=== PATIENT | female | born 1965 | race Caucasian/White ===

== ENCOUNTER 2024-07-13 02:10 | Inpatient (IN) | payer OTHER ==
[~2024-07-13] VITALS: Ht 165.1 cm; Wt 67.9 kg
--- NOTE | 2024-07-13 02:22 | ED.PDOC ---
HPI Comments 58 year old female came to ER via EMS due to chest pains. Patient has been having intermittent episodes of chest pains the past 3 days, associated with shortness of breath. Patient was seen at [facility], showing elevated troponin levels and left sided pneumonia on xrays. Patient was transferred here for continuing management. Blood pressure upon arrival was 165/121 mmHg Chief Complaint: Chest Pain Time Seen by MD: 02:54 Reviewed Notes: Nurses Notes Information Source: Patient, Emergency Med Personnel Mode of Arrival: EMS Severity: Moderate Timing: Days Duration: Intermittent Prehospital treatment: 12 Lead EKG, Oxygen Location: Substernal Radiation: No Radiation Quality: Pressure, Aching Onset: With Light Exertion Cardiac Risk Factors: HTN PE Risk Factors: None History of: None Modifying Factors: Nothing Associated Signs and Symptoms: SOB Past Medical History PAST MEDICAL HISTORY: HTN Surgical History: Denies all surgeries 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 Family History Family History: Reviewed,noncontributory to illness Social History Smoker: Non-Smoker Alcohol: Denies ETOH Use Drugs: Denies Drug Use Lives In: Home Constitutional: denies: chills, diaphoresis, fatigue, fever, malaise, sweats, weakness, others EENTM: denies: blurred vision, double vision, ear bleeding, ear discharge, ear drainage, ear pain, ear ringing, eye pain, eye redness, hearing loss, mouth pain, mouth swelling, nasal discharge, nose bleeding, nose congestion, nose pain, photophobia, tearing, throat pain, throat swelling, voice changes, others Respiratory: denies: cough, hemoptysis, orthopnea, SOB at rest, shortness of breath, SOB with excertion, stridor, wheezing, others Cardiovascular: reports: chest pain; denies: dizzy spells, diaphoresis, Dyspnea on exertion, edema, irregular heart beat, left arm pain, lightheadedness, palpitations, PND, syncope, others Gastrointestinal: denies: abdomen distended, abdominal pain, blood streaked bowels, constipated, diarrhea, dysphagia, difficulty swallowing, hematemesis, melena, nausea, poor appetite, poor fluid intake, rectal bleeding, rectal pain, vomiting, others Genitourinary: denies: abnormal vagina bleeding, burning, dyspareunia, dysuria, flank pain, frequency, hematuria, incontinence, pain, , vagina di scharge, urgency, others Neurological: denies: dizziness, fainting, headache, left sided numbness, left sided weakness, numbness, paresthesia, pre-existing deficit, right sided numbness, right sided weakness, seizure, speech problems, tingling, tremors, weakness, others Musculoskeletal: denies: back pain, gout, joint pain, joint swelling, muscle pain, muscle stiffness, neck pain, others Integumetry: denies: bruises, change in color, change in hair/nails, dryness, laceration, lesions, lumps, rash, wounds, others Allergic/Immunocompromised: denies: Difficulty Healing, Frequent Infections, Hives, Itching, others Hematologic/Lymphatic: denies: anemia, blood clots, easy bleeding, easy bruising, swollen glands, others Endocrine: denies: excessive hunger, excessive sweating, excessive thirst, excessive urination, flushing, intolerance to cold, intolerance to heat, unexplained weight gain, unexplained weight loss, others Psychiatric: denies: anxiety, bipolar disorder, depression, hopeless, panic disorder, schizophrenia, sleepless, suicidal, others Physical Exam General Appearance: No Apparent Distress, Normal HEENT: Normal ENT Inspection, Pharynx Normal, TMs Normal Neck: Full Range of Motion, Non-Tender, Normal, Normal Inspection Respiratory: Chest Non-Tender, Lungs Clear, No Accessory Muscle Use, No Respiratory Distress, Normal Breath Sounds Cardiovascular: No Edema, No JVD, No Murmur, No Gallop, Normal Peripheral Pulses, Regular Rate/Rhythm Breast Exam: Deferred Gastrointestinal: No Organomegaly, Non Tender, No Pulsatile Mass, Normal Bowel Sounds, Soft Genitalia: Deferred Pelvic: Deferred Rectal: Deferred Extremities: No calf tenderness, Normal capillary refill, Normal inspection, Normal range of motion, Non-tender, No pedal edema Musculoskeletal : Apperance: Normal Neurologic: Alert, bariatric program coordinator II-XII nml as Tested, No Motor Deficits, Normal Affect, Normal Mood, No Sensory Deficits Cerebellar Function: Normal Reflexes: Normal Skin: Dry, Normal Color, Warm Lymphatic: No Adenopathy EKG EKG : Pulse Rate (adult): 96 Cardiac Rhythm: NSR Block: LBBB Was a procedure done? Was a procedure done?: No CP Differential Dx Differential Diagnosis: MAT, DE, PAC's Differential Diagnosis: HTN Essential, HTN Accelerated, Medical NonCompliance Differential Diagnosis: Gastritis, Myocardial Infarction, Pericarditis, Pneumonia X-Ray, Labs, Meds, VS Vital Signs Date Time Temp Pulse Resp B/P (MAP) Pulse Ox O2 Delivery O2 Flow Rate FiO2 07/13/24 02:54 96 07/13/24 02:15 94 07/13/24 02:10 98.2 97 18 165/121 (136) 97 Lab Test 07/13/24 03:23 07/13/24 02:25 Range/Units Troponin I High Sensitivity Pending 314 *H </=34 ng/L White Blood Count 8.3 4.4-10.8 10^3/uL Red Blood Count 5.11 4.0-5.20 10^6/uL Hemoglobin 15.1 12.2-16.2 g/dL Hematocrit 45.8 36.0-46.0 % Mean Corpuscular Volume 89.6 80.0-100.0 fL Mean Corpuscular Hemoglobin 29.5 28.0-32.0 pg Mean Corpuscular Hemoglobin Concent 33.0 32.0-36.0 g/dL Red Cell Distribution Width 14.1 11.8-14.3 % Platelet Count 231 140-450 10^3/uL Mean Platelet Volume 8.8 6.9-10.8 fL Neutrophils (%) (Auto) 74.7 37.0-80.0 % Lymphocytes (%) (Auto) 17.8 10.0-50.0 % Monocytes (%) (Auto) 6.0 0.0-12.0 % Eosinophils (%) (Auto) 0.5 0.0-7.0 % Basophils (%) (Auto) 1.0 0.0-2.0 % Neutrophils # (Auto) 6.2 1.6-8.6 10 ^3/uL Lymphocytes # (Auto) 1.5 0.4-5.4 10 ^3/uL Monocytes # (Auto) 0.5 0-1.3 10 ^3/uL Eosinophils # (Auto) 0 0-0.8 10 ^3/uL Basophils # (Auto) 0.1 0-0.2 10 ^3/uL Nucleated Red Blood Cells 0.1 % Sodium Level 140 136-145 mmol/L Potassium Level 4.0 3.5-5.1 mmol/L Chloride Level 105 98-107 mmol/L Carbon Dioxide Level 27 20-31 mmol/L Anion Gap 8 5-15 Blood Urea Nitrogen 24 H 9-23 mg/dL Creatinine 1.02 0.550-1.02 mg/dL Glomerular Filtration Rate Calc 65 >90 mL/min BUN/Creatinine Ratio 23.5 H 10.0-20.0 Serum Glucose 128 H 74-106 mg/dL Calcium Level 9.6 8.7-10.4 mg/dL Time of 1ST Reevaluation: 02:22 Reevaluation 1ST: Unchanged Patient Education/Counseling: Diagnosis, Treatment Family Education/Counseling: Diagnosis, Treatment Departure 1 Departure Time of Disposition: 03:32 (Patient presented with chest pain that was concerning for possible STEMI, ACS, PE, Pneumonia, Muscle Strain, COPD, Dissection. Data: 1. I ordered and reviewed the result of at least 3 labs including a CBC, BMP, and Troponin. 2. I independently interpreted the following tests: EKG which shows sinus arrhythmia and Chest X-ray which shows concern for possible pneumonia.. Patient received antibiotics at other hospitalRisk:This patient has a high risk of morbidity due to further diagnostic testing or treatment and may suffer from an acute cardiac or respiratory disorder. Workup reveals concern for ACS and patient should be admitted for further workup and possible expert consultation. ) Impression: Primary Impression: Acute chest pain Additional Impression: Elevated troponin Disposition: ADMITTED INPATIENT Admit to: Med Surg Condition: Serious Critical Care Note Critical Care Time?: Yes (35 min-critical care time only) Critical care comment: chest pains Authorized and Performed by: Lupe Saini MD Total critical care time: Approximately 72 minutes Due to a high probability of clinically significant, life threatening deterioration, the patient required my highest level of preparedness to intervene emergently and I personally spent this critical care time directly and personally managing the patient. This critical care time included obtaining a history; examining the patient; pulse oximetry; ordering and review of studies; arranging urgent treatment with development of a management plan; evaluation of patient's response to treatment; frequent reassessment; and, discussions with other providers. This critical care time was performed to assess and manage the high probability of imminent, life-threatening deterioration that could result in multi-organ failure. It was exclusive of separately billable procedures and treating other patients and teaching time. Please see my other sections and the rest of the note for further information on patient assessment and treatment. Stability Stability form required: No Heart Score Heart Score: Heart Score Response (Comments) Value History Moderate Suspicious 1 EKG Repolarization Disturb 1 Age 45-64 1 Risk Factors 1 or 2 risk factors 1 Troponin Normal limit 0 Total 4 I personally scribed for LUPE SAINI MD ([facility]) on 07/13/24 at 02:22. Electronically submitted by Zhao Buck ([facility]). I personally scribed for LUPE SAINI MD ([facility]) on 07/13/24 at 02:54. Electronically submitted by Zhao Buck ([facility]). LUPE SAINI MD Jul 13, 2024 02:22
[2024-07-13 02:50] LABS: Chloride 105 mmol/L (98-107); Sodium 140 mmol/L (136-145)
[2024-07-13 02:51] LABS: Anion Gap 8 (5-15); Carbon Dioxide 27 mmol/L (20-31)
[2024-07-13 02:52] LABS: Basophils # (auto) 0.1 10 ^3/uL (0-0.2); Calcium 9.6 mg/dL (8.7-10.4); Eosinophils # (auto) 0 10 ^3/uL (0-0.8); Eosinophils % (auto) 0.5 % (0.0-7.0); Hematocrit 45.8 % (36.0-46.0); Hemoglobin 15.1 g/dL (12.2-16.2); Lymphocytes # (auto) 1.5 10 ^3/uL (0.4-5.4); Lymphocytes % (auto) 17.8 % (10.0-50.0); Mean Corpuscular Hemoglobin 29.5 pg (28.0-32.0); Mean Corpuscular Volume 89.6 fL (80.0-100.0); Monocytes # (auto) 0.5 10 ^3/uL (0-1.3); Neutrophils # (auto) 6.2 10 ^3/uL (1.6-8.6); Neutrophils % (auto) 74.7 % (37.0-80.0); Nucleated Red Blood Cells % 0.1 %; Platelet Count (auto) 231 10^3/uL (140-450); Red Blood Cells 5.11 10^6/uL (4.0-5.20); Red Cell Distribution Width 14.1 % (11.8-14.3); White Blood Cell 8.3 10^3/uL (4.4-10.8)
[2024-07-13 02:56] LABS: BUN/Creatinine Ratio 23.5 (10.0-20.0)
[2024-07-13 03:10] LABS: Blood Urea Nitrogen 24 mg/dL (9-23); Glucose 128 mg/dL (74-106)
[2024-07-13] MEDS ORDERED: cloNIDine HCL 0.1 MG TAB PO PRN (03:45)
[2024-07-13] MEDS ORDERED: DOCUSATE SOD 100 MG CAP PO PRN (03:45)
[2024-07-13 04:00] VITALS: PULSE 92; RESP 18; O2SAT 96
--- NOTE | 2024-07-13 04:09 | DVH ---
EXAM: XY CHEST PORTABLE HISTORY: cp COMPARISON: Chest CT dated 07/12/2024 was not made available on the PAC system for viewing. TECHNIQUE: Portable AP view of the chest was performed. FINDINGS: There are hazy opacities in the lung bases. The left hemidiaphragm is partially obscured. No pneumot horax. The heart is enlarged. IMPRESSION: 1. Bilateral lung base opacities may be due to pneumonia and/or pleural effusions. 2. Cardiomegaly.
[2024-07-13] MEDS ORDERED: NITROGLYCERIN 0.4 MG SL TAB SL PRN (04:30)
--- NOTE | 2024-07-13 04:30 | DVHHP2 ---
History of Present Illness Reason for Visit: Acute chest pain History of Present Illness The patient is a 58-year-old female with past medical history of hypertension who presented to [facility] ED with complaint of chest pain. Patient reports he has been experiencing intermittent episode of chest pain for the past 3 days, associated shortness of breaths, getting worse today that prompted this visit. Patient was seen and evaluated in the ED, laboratory data shows WBC 8.3, platelets 231, sodium 140, potassium 4.0, BUN 24, creatinine 1.02, GFR 65, glucose 128, troponin 314, blood pressure 165/121, heart rate 94, temperature 98.2 F, O2 saturation 97% on room air. Chest x-ray revealing bilateral lung base opacity may be due to pneumonia and/or pleural effusions, cardiomegaly present. Patient was given aspirin 325 mg p.o. x1, please see medication orders section in the computer. On my assessment, patient denied chest pain at this moment, no headache, no dizziness, no diaphoresis, no nausea, no vomiting, no fever, no chills. Patient was admitted for further evaluation and medical management. Past Medical History HTN Past Surgical History Denies all surgeries Family History Reviewed, noncontributory to the management of this case. Past Social History The patient lives at home, denies smoking, alcohol or illicit drugs abuse. Review of Systems Constitutional: No: Fever, Chills, Sweats, Weakness, Malaise, Other Eyes: No: Pain, Vision change, Conjunctivae inflammation, Eyelid inflammation, Other, Redness ENT: No: Ear pain, Ear discharge, Nose pain, Nose discharge, Nose congestion, Mouth pain, Mouth swelling, Throat pain, Throat swelling, Other Respiratory: No: Cough, Dry, Shortness of breath, SOB with excertion, Wheezing, Hemoptysis, Pleuritic Pain, Sputum, Wheezing, Other Cardiovascular: Chest Pain; No: Palpitations, Orthopnea, Paroxysmal Noc. Dyspnea, Edema, Lt Headedness, Other Gastrointestinal: No: Nausea, Vomiting, Abdominal Pain, Diarrhea, Constipation, Melena, Hematochezia, Other Genitourinary: No Dysuria, No Frequency, No Incontinence, No Hematuria, No Retention, No Other Musculoskeletal: No: other, neck pain, shoulder pain, arm pain, back pain, hand pain, leg pain, foot pain Skin: No: Rash, Lesions, Jaundice, Bruising, Other Neurological: No: Weakness, Numbness, Incoordination, Change in speech, Confusion, Seizures, Other Medications Current Medications Medications Dose Ordered Sig/Marily Route Start Time Stop Time Status Last Admin Dose Admin Aspirin 81 mg DAILY PO 07/13/24 10:00 UNV Clonidine HCl 0.1 mg Q4HP PRN PO 07/13/24 03:45 UNV Metoprolol Tartrate 25 mg BID PO 07/13/24 10:00 UNV Sodium Chloride 10 ml Q8HR IV 07/13/24 06:00 UNV Acetaminophen/ Hydrocodone Bitart 1 tab Q4HP PRN PO 07/13/24 03:45 UNV Ondansetron HCl 4 mg Q4HP PRN IV 07/13/24 03:45 UNV Docusate Sodium 100 mg BIDPRN PRN PO 07/13/24 03:45 UNV Acetaminophen 650 mg Q6HP PRN PO 07/13/24 03:45 UNV Exam Vital Signs Vital Signs Date Time Temp Pulse Resp B/P (MAP) Pulse Ox O2 Delivery O2 Flow Rate FiO2 07/13/24 02:54 96 07/13/24 02:10 98.2 18 165/121 (136) 97 General Appearance: Alert, Oriented X3, Cooperative, No acute distress HEENT: Atraumatic, PERRLA, Mucous membr. moist/pink Respiratory: Clear to auscultation, Normal air movement Cardiovascular: Regular rate, Normal S1, Normal S2, No murmurs Abdominal: Normal bowel sounds, Soft, No tenderness, No hepatospenomegaly, No masses Extremities: No clubbing, No cyanosis, No edema, Normal pulses, No tenderness/swelling Skin: No rashes, No breakdown, No significant lesion Neuro: Normal gait, Normal speech, Strength at 5/5 X4 ext, Normal tone, Sensation intact, Cranial nerves 3-12 NL, Reflexes 2+ Psych/Mental Status: Mental status NL, Mood NL Labs/Xrays Labs Test 07/13/24 03:23 07/13/24 02:25 Range/Units White Blood Count 8.3 4.4-10.8 10^3/uL Red Blood Count 5.11 4.0-5.20 10^6/uL Hemoglobin 15.1 12.2-16.2 g/dL Hematocrit 45.8 36.0-46.0 % Mean Corpuscular Volume 89.6 80.0-100.0 fL Mean Corpuscular Hemoglobin 29.5 28.0-32.0 pg Mean Corpuscular Hemoglobin Concent 33.0 32.0-36.0 g/dL Red Cell Distribution Width 14.1 11.8-14.3 % Platelet Count 231 140-450 10^3/uL Mean Platelet Volume 8.8 6.9-10.8 fL Neutrophils (%) (Auto) 74.7 37.0-80.0 % Lymphocytes (%) (Auto) 17.8 10.0-50.0 % Monocytes (%) (Auto) 6.0 0.0-12.0 % Eosinophils (%) (Auto) 0.5 0.0-7.0 % Basophils (%) (Auto) 1.0 0.0-2.0 % Neutrophils # (Auto) 6.2 1.6-8.6 10 ^3/uL Lymphocytes # (Auto) 1.5 0.4-5.4 10 ^3/uL Monocytes # (Auto) 0.5 0-1.3 10 ^3/uL Eosinophils # (Auto) 0 0-0.8 10 ^3/uL Basophils # (Auto) 0.1 0-0.2 10 ^3/uL Nucleated Red Blood Cells 0.1 % Sodium Level 140 136-145 mmol/L Potassium Level 4.0 3.5-5.1 mmol/L Chloride Level 105 98-107 mmol/L Carbon Dioxide Level 27 20-31 mmol/L Anion Gap 8 5-15 Blood Urea Nitrogen 24 H 9-23 mg/dL Creatinine 1.02 0.550-1.02 mg/dL Glomerular Filtration Rate Calc 65 >90 mL/min BUN/Creatinine Ratio 23.5 H 10.0-20.0 Serum Glucose 128 H 74-106 mg/dL Calcium Level 9.6 8.7-10.4 mg/dL PATIENT: GLYNN MELTON ACCT: [id number] UNIT: [id number] : 1965 LOC: ER ROOM / BED: / AGE / SEX: 58 / F ADM STATUS: REG ER SERVICE 0219 ORDERING PHYSICIAN: LUPE AKERS MD PROCEDURE(s): CXRP - CHEST PORTABLE REASON: cp ORDER NUMBER(s): [id number], ACCESSION NUMBER(s): [id number] EXAM: XY CHEST PORTABLE HISTORY: cp COMPARISON: Chest CT dated 07/12/2024 was not made available on the PAC system for viewing. TECHNIQUE: Portable AP view of the chest was performed. FINDINGS: There are hazy opacities in the lung bases. The left hemidiaphragm is partially obscured. No pneumothorax. The heart is enlarged. IMPRESSION: 1. Bilateral lung base opacities may be due to pneumonia and/or pleural effusions. 2. Cardiomegaly. Assessment/Plan Assessment/Plan Acute chest pain Elevated troponin Hypertensive urgency Pneumonia, unspecified organism Plan 1. Admit to telemetry unit 2. Breathing treatment 3. Pain control management 4. Management of fluids and electrolytes 5. Consultation for Cardiology 6. Diagnostic tests-chest x-ray 7. DVT prophylaxis-on aspirin 8. Repeat labs CBC, CMP in a.m. 9. Continue with current medical management 10. Treatment plan discussed with patient and RN. Patient verbalized understanding. Plan discussed with: Patient, Other (RN) My Orders Orders - KIM DALAL DNP Procedure Category Date Status Time * Cardiology Consult CONS 07/13/24 Transmitted 03:44 Aspirin Enteric PHA 07/13/24 Logged Coated Tablet 03:45 Aspirin Enteric PHA 07/13/24 Logged Coated Tablet 10:00 Clonidine Hcl Tablet PHA 07/13/24 Logged (Catapres Tablet) 03:45 Clonidine Hcl Tablet PHA 07/13/24 Logged (Catapres Tablet) 03:45 Metoprolol Tartrate PHA 07/13/24 Logged Tablet (Lopressor Ta 10:00 Allergies IVANNA 07/13/24 In Process 03:44 Code Status CODE 07/13/24 Transmitted 03:44 Sodium Chloride Lock PHA 07/13/24 Logged (Saline Lock Ns) 06:00 Oxygen Per Hour RT 07/13/24 Transmitted 03:44 Hydrocodone-Acet PHA 07/13/24 Logged 5/325mg Tab ([place] 03:45 Ondansetron Hcl PHA 07/13/24 Logged (Zofran) 03:45 Docusate Sodium PHA 07/13/24 Logged Capsule (Colace 03:45 Complete Blood Count LAB 07/14/24 Verified 04:00 Comprehensive LAB 07/14/24 Verified Metabolic Panel 04:00 Cardiac DIET 07/13/24 Transmitted Diet-2gna,Lofat,Lochol Breakfast Condition: Serious IVANNA 07/13/24 In Process 03:44 Acetaminophen Tablet PHA 07/13/24 Logged (Tylenol Tablet) 03:45 Bedrest With Bathroom IVANNA 07/13/24 In Process Privileg 03:44 Sequential IVANNA 07/13/24 In Process Compression Device Problem List: (1) Acute chest pain (2) Elevated troponin (3) Hypertensive urgency (4) Pneumonia, unspecified organism Date of Service: Jul 13, 2024 Billing Provider: KIM DALAL DNP Common Visit Codes: 21520-FIPZXQX INP/OBS CARE (HIGH) KIM DALAL DNP Jul 13, 2024 04:30
[2024-07-13] MEDS: ASPirin-EC 325mg tab PO ONE (05:42)
[2024-07-13] MEDS: cloNIDine HCL 0.1 MG TAB PO ONE (05:42)
[2024-07-13] MEDS: AZITHROMYCIN 500MG/ 250ML 250 ML IV ONE (05:42)
[2024-07-13 05:47] LABS: Triglycerides 108 mg/dL (< 150)
[2024-07-13 05:49] LABS: Cholesterol 192 mg/dL (< 200); HDL Cholesterol 35 mg/dL (40-59); LDL Cholesterol 155 mg/dL (< 100)
[2024-07-13] MEDS: SODIUM CHLOR 0.9% PF (SALINE LOCK) 10ML VIAL/SYR IV SCH (06:06)
[2024-07-13 08:00] VITALS: PULSE 84; RESP 16; O2SAT 95
[2024-07-13] MEDS: ONDANSETRON HCL 4 MG/2 ML VIAL IV PRN (08:10)
[2024-07-13] MEDS: MORPHINE SULFATE INJ 2 MG/ml SYRG IV PRN (08:11)
[2024-07-13] MEDS: HYDROcodone-ACET 5/325MG TAB PO PRN (09:07)
[2024-07-13] MEDS: ASPirin-EC 81 mg tab PO SCH (10:08)
[2024-07-13] MEDS: METOPROLOL TARTRATE 25 MG TAB PO SCH (10:08)
--- NOTE | 2024-07-13 10:50 | DVHINCON2 ---
MANUEL ORTIZ AGACNP 07/13/24 1050: Date Seen: Jul 13, 2024 Referring Physician Boris Reason for Consultation Elevated Troponin History of Present Illness 58-year-old female with PMH for HTN, HLD, atrial fibrillation, HLD, CHF, CVA no residual deficits, noncompliance, tobacco use, amphetamine abuse presented to the hospital with chest pain and shortness of breath. Patient states chest pain is retrosternal, nonradiating, intermittent, pressure/sharp in nature, worsens with activity associated with shortness of breath. Upon evaluation in the ER patient noted to have elevated blood pressure, initially 165/121. Patient also had positive troponins trending 314, 299, 272. BNP 2279. CXR showed cardiomegaly with bilateral lung base opacities reflective pneumonia versus pleural effusion/edema. Patient does endorse amphetamine use used to be intermittently though states recently has been on a daily basis. EKG reviewed and shows sinus rhythm at 94 beats per minute, BBB Past Medical History CHf CVA PAF HTN Amphetamine use Tobacco use HLD Past Surgical History denies previous cardiac surgeries Family History Denies pertinent family cardiac history Social History Endorses 1pk a day smoker for many years, recently cut down to 1/2 pack a day. Endorses long time use of amphetamines. Denies alcohol use. Allergies: Coded Allergies: NO KNOWN ALLERGIES (Unverified , 07/13/24) Current Medications Current Medications Medications (Trade) Dose Ordered Sig/Marily Route PRN Reason Start Time Stop Time Status Last Admin Aspirin (Ecotrin Enteric Coated Tablet) 81 mg DAILY PO 07/13/24 10:00 07/13/24 10:08 Clonidine HCl (Catapres Tablet) 0.1 mg Q4HP PRN PO SBP>150 07/13/24 03:45 Metoprolol Tartrate (Lopressor Tablet) 25 mg BID PO 07/13/24 10:00 07/13/24 10:08 Sodium Chloride (Saline Lock Ns) 10 ml Q8HR IV 07/13/24 06:00 07/13/24 06:06 Acetaminophen/ Hydrocodone Bitart ([place] 5/325MG Tab) 1 tab Q4HP PRN PO MODERATE PAIN (4-6 PAIN SCALE) 07/13/24 03:45 07/13/24 09:07 Ondansetron HCl (Zofran) 4 mg Q4HP PRN IV NAUSEA / VOMITING 07/13/24 03:45 07/13/24 08:10 Docusate Sodium (Colace Capsule) 100 mg BIDPRN PRN PO FOR CONSTIPATION 07/13/24 03:45 Acetaminophen (Tylenol Tablet) 650 mg Q6HP PRN PO PAIN SCALE 1-3 OR TEMP>100.4 07/13/24 03:45 Nitroglycerin (Ntrostat Sublingual) 0.4 mg Q5MINP PRN SL FOR CHEST PAIN 07/13/24 04:30 Morphine Sulfate 2 mg Q30M PRN IV FOR CHEST PAIN 07/13/24 04:30 07/13/24 08:11 Azithromycin 250 ml @ 125 mls/hr Q24H IV 07/14/24 06:00 Review of Systems Constitutional: No: Fever, Chills, Sweats, Weakness, Malaise, Other Eyes: No: Pain, Vision change, Conjunctivae inflammation, Eyelid inflammation, Other, Redness ENT: No: Ear pain, Ear discharge, Nose pain, Nose discharge, Nose congestion, Mouth pain, Mouth swelling, Throat pain, Throat swelling, Other Respiratory: No: Cough, Dry, , Wheezing, Hemoptysis, Pleuritic Pain, Sputum, Wheezing, Other positive: shortness of breath, SOB with exertion Cardiovascular: ; No: Orthopnea, Paroxysmal Noc. Dyspnea, , Lt Headedness, Other positive: Chest Pain Palpitations,Edema Right lower extremity Gastrointestinal: No: Nausea, Vomiting, Abdominal Pain, Diarrhea, Constipation, Melena, Hematochezia, Other Genitourinary: No Dysuria, No Frequency, No Incontinence, No Hematuria, No Retention, No Other Musculoskeletal: neck pain; No: other, shoulder pain, arm pain, back pain, hand pain, leg pain, foot pain Skin: No: Rash, Lesions, Jaundice, Bruising, Other Neurological: Other (Dizziness, headache.); No: Weakness, Numbness, Incoordination, Change in speech, Confusion, Seizures Vital Signs Vital Signs Date Time Temp Pulse Resp B/P (MAP) Pulse Ox O2 Delivery O2 Flow Rate FiO2 07/13/24 10:08 70 127/94 07/13/24 10:00 16 100 07/13/24 08:00 97.5 97.5 07/13/24 04:00 Room Air* 0 21 21 Physical Exam General appearance: Patient is well-developed, well-nourished, in no acute distress. HEENT: Exam shows: Normocephalic, atraumatic, PERRLA, EOMI Neck: Supple, no bruits Chest: Equal chest excursion bilaterally. Breath sounds normal-no rales or wheezes. Heart: Rhythm: Regular rate; no murmur or gallop Abdomen: Exam shows: Soft, nontender, nondistended Musculoskeletal: No clubbing, no cyanosis, + Right lower extremity edema Dermatology: Skin warm, moist. Neurological: Exam shows: Alert and oriented x4, normal speech Available prior records, labs, EKG, rhythm strips reviewed and interpreted Labs/Diagnostic Data Labs Test 07/13/24 06:28 07/13/24 05:23 07/13/24 05:09 07/13/24 02:25 Range/Units B-Type Natriuretic Peptide 2279.83 0-100 pg/mL Troponin I High Sensitivity 272 *H </=34 ng/L Triglycerides Level 108 < 150 mg/dL Cholesterol Level 192 < 200 mg/dL LDL Cholesterol 155 H < 100 mg/dL HDL Cholesterol 35 L 40-59 mg/dL White Blood Count 8.3 4.4-10.8 10^3/uL Red Blood Count 5.11 4.0-5.20 10^6/uL Hemoglobin 15.1 12.2-16.2 g/dL Hematocrit 45.8 36.0-46.0 % Mean Corpuscular Volume 89.6 80.0-100.0 fL Mean Corpuscular Hemoglobin 29.5 28.0-32.0 pg Mean Corpuscular Hemoglobin Concent 33.0 32.0-36.0 g/dL Red Cell Distribution Width 14.1 11.8-14.3 % Platelet Count 231 140-450 10^3/uL Mean Platelet Volume 8.8 6.9-10.8 fL Neutrophils (%) (Auto) 74.7 37.0-80.0 % Lymphocytes (%) (Auto) 17.8 10.0-50.0 % Monocytes (%) (Auto) 6.0 0.0-12.0 % Eosinophils (%) (Auto) 0.5 0.0-7.0 % Basophils (%) (Auto) 1.0 0.0-2.0 % Neutrophils # (Auto) 6.2 1.6-8.6 10 ^3/uL Lymphocytes # (Auto) 1.5 0.4-5.4 10 ^3/uL Monocytes # (Auto) 0.5 0-1.3 10 ^3/uL Eosinophils # (Auto) 0 0-0.8 10 ^3/uL Basophils # (Auto) 0.1 0-0.2 10 ^3/uL Nucleated Red Blood Cells 0.1 % Sodium Level 140 136-145 mmol/L Potassium Level 4.0 3.5-5.1 mmol/L Chloride Level 105 98-107 mmol/L Carbon Dioxide Level 27 20-31 mmol/L Anion Gap 8 5-15 Blood Urea Nitrogen 24 H 9-23 mg/dL Creatinine 1.02 0.550-1.02 mg/dL Glomerular Filtration Rate Calc 65 >90 mL/min BUN/Creatinine Ratio 23.5 H 10.0-20.0 Serum Glucose 128 H 74-106 mg/dL Calcium Level 9.6 8.7-10.4 mg/dL Assessment * Chest Pain, Positive Troponins - Trending stable. Likely demand ischemia. Continue medical management as patient not a candidate for ischemic workup due to continued amphetamine use and noncompliance. * Hypertensive Urgency - Better controlled, continue metoprolol, change to 50 mg succinate. Losartan 25 mg daily added. * Acute on Chronic HFrEF - Diuresis with lasix 40 mg IV daily. * Cardiomyopathy - Initiate and Continue GDMT as tolerated * PAF - Currently sinus rhythm, continue FD lovenox, continue DOAC upon DC. * Methamphetamine abuse - UDS pending. Advised against * HLD - statin * RLE Edema - Follow up RLE US. * Tobacco use - advised against * Noncompliance - Strongly advised compliance. Case Discussed with Dr Delacruz. Chest pain resolved, Breathing better now that BP better controlled. Follow up ECHO. Continue medical Management. Critical care, time spent: 41 minutes This medical document was created using an electronic medical record system with voice recognition software and computerized dictation system. Although this document has been carefully reviewed, there might still be some phonetic and typographical errors. Occasional wrong-word or ``sound-alike substitutions may have occurred due to the inherent limitations of voice recognition software. These areas are purely typographical due to imperfections of the software programs and do not reflect any compromise in the patient's medical care. Please read the chart carefully and recognize, using context, where these substitutions have occurred. Thank you for allowing me to participate in the management of this patient. The treatment plan was discussed with and agreed upon by patient/family including requesting consultants and ordering of imaging/procedures. 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
[2024-07-13 11:19] LABS: Urine Bacteria None Seen /hpf (None Seen)
[2024-07-13] MEDS: FUROSEMIDE 40 MG/4 ML VIAL IV ONE (11:31)
[2024-07-13 11:35] LABS: Urine Blood 1+ /uL (Negative); Urine Clarity Clear (Clear); Urine Color Yellow (Yellow); Urine Hyaline Cast FEW /lpf (0 - 2); Urine Protein, UAD 1+ (Negative); Urine Specific Gravity 1.043 (1.001-1.035); Urine Squamous Epithelial Cell FEW /hpf (<5); Urine Urobilinogen Normal (Negative); Urine WBC 2 /HPF (0-5); Urine pH 5.5 (5.0-9.0)
[2024-07-13 11:45] LABS: Amphetamine Screen, Urine Pos (NEGATIVE); Barbiturate Scree,Urine Neg (NEGATIVE); Benzodiazephine Screen, Urine Neg (NEGATIVE); Cocaine Screen, Urine Neg (NEGATIVE)
[2024-07-13 11:46] LABS: Cannabinoid Screen, Urine Neg (NEGATIVE); Opiate Scree,Urine Neg (NEGATIVE)
[2024-07-13 11:47] LABS: Phencyclidine Screen, Urine Neg (NEGATIVE)
[2024-07-13 11:48] LABS: Chloride 106 mmol/L (98-107); Potassium 3.9 mmol/L (3.5-5.1); Sodium 142 mmol/L (136-145)
[2024-07-13 11:49] LABS: Anion Gap 12 (5-15); Calcium 9.4 mg/dL (8.7-10.4); Carbon Dioxide 24 mmol/L (20-31)
[2024-07-13 11:54] LABS: BUN/Creatinine Ratio 23.7 (10.0-20.0)
[2024-07-13 11:58] LABS: Blood Urea Nitrogen 23 mg/dL (9-23); Glucose 117 mg/dL (74-106)
--- NOTE | 2024-07-13 12:07 | DVHSR ---
APPROVED REPORT EXAM: Two-dimensional and M-mode echocardiogram with Doppler and color Doppler. Blood Pressure: 151/117 mmHg INDICATION Chest Pain Positive Trops RISK FACTORS Height: 5' 5", Weight: 123 DIMENSIONS LVDd5.2 (3.8-5.7cm)LA (2D)4.5 (1.9-4.0cm)Aortic Root3.5 (2.0-3.7cm) LVDs4.9 (2.5-4.0cm)LA (MM) (1.9-4.0cm)Aortic Cusp Exc1.7 (1.5-2.0cm) EF (%) 13.0 (55-70%)Rt. Atrium4.0 (1.9-4.0cm)Asc. Aorta cm IVSd1.2 (0.7-1.1cm)RV (D) (1.8-2.4cm) PWd1.2 (0.7-1.1cm) Mitral Valve MitralMitral Stenosis E wave0.70m/sMV Mean GR.mmHg A wave0.40m/sMV Peak GR.mmHg E/A ratio1.82D MVAcm2 Aortic Valve Aortic ValveAortic Stenosis V10.50m/Williams Mean GR.2mmHg V20.80m/Williams Peak GR.3mmHg LVOT Diameter2.1 (1.8-2.4cm)Doppler AVA2.16cm2 AI P 1/2 Duls231.80ms Pulmonic Valve V20.40m/s Tricuspid Valve TR Velocity2.30m/s [id number] Conclusion lvef 10- 15% by visual estimate dilated LV RV dysfunction biatrail enlargement pleural effusion on L side appears significant trivial pericardial effusion mild mitral regurg
--- NOTE | 2024-07-13 12:33 | DVH ---
EXAM: US Duplex Right Lower Extremity Veins CLINICAL INDICATION: Edema, R/O DVT TECHNIQUE: Real-time duplex ultrasound scan of the right lower extremity veins integrating B-mode tw o-dimensional vascular structure, Doppler spectral analysis, color flow Doppler imaging and compressi on. COMPARISON: None FINDINGS: DEEP VEINS: Unremarkable. No DVT in the visualized common femoral, femoral, proximal deep femoral or popliteal veins. The veins demonstrate normal color flow, are normally compressible, with normal phasic flow and/or augmentation response. SUPERFICIAL VEINS: Unremarkable. No thrombus in the visualized great saphenous vein. SOFT TISSUES: No acute findings. No popliteal cyst. OTHER FINDINGS: . None. IMPRESSION: No DVT.
[2024-07-13 15:19] VITALS: O2SAT 98
[2024-07-13 17:00] VITALS: BP 126/91; PULSE 58; RESP 17; TEMP 98.5; O2SAT 99
[2024-07-13 20:00] VITALS: PULSE 73
[2024-07-13 21:00] VITALS: BP 134/96; PULSE 72; RESP 17; TEMP 98; O2SAT 98
[2024-07-13] MEDS: ACETAMINOPHEN 325 MG TAB PO PRN (22:25)
[2024-07-14] VITALS (8 sets, daily range): BP systolic 97–123; BP diastolic 70–94; PULSE 58–69; RESP 16–19; TEMP 97.1–97.7; O2SAT 90–100
[2024-07-14] MEDS: AZITHROMYCIN 500MG/ 250ML 250 ML IV SCH ×2 (05:35→10:14)
[2024-07-14 07:22] LABS: Basophils # (auto) 0 10 ^3/uL (0-0.2); Basophils % (auto) 0.6 % (0.0-2.0); Eosinophils # (auto) 0.1 10 ^3/uL (0-0.8); Eosinophils % (auto) 0.8 % (0.0-7.0); Hematocrit 43.2 % (36.0-46.0); Hemoglobin 13.9 g/dL (12.2-16.2); Lymphocytes # (auto) 1.1 10 ^3/uL (0.4-5.4); Lymphocytes % (auto) 13.7 % (10.0-50.0); Mean Corpuscular Hemoglobin 29.1 pg (28.0-32.0); Mean Corpuscular Hgb Conc. 32.2 g/dL (32.0-36.0); Mean Corpuscular Volume 90.6 fL (80.0-100.0); Monocytes # (auto) 0.7 10 ^3/uL (0-1.3); Monocytes % (auto) 8.4 % (0.0-12.0); Neutrophils % (auto) 76.5 % (37.0-80.0); Nucleated Red Blood Cells % 0.1 %; Platelet Count (auto) 183 10^3/uL (140-450); Red Blood Cells 4.77 10^6/uL (4.0-5.20); Red Cell Distribution Width 13.8 % (11.8-14.3); White Blood Cell 7.9 10^3/uL (4.4-10.8)
[2024-07-14 07:42] LABS: Albumin 3.5 g/dL (3.2-4.8); Anion Gap 10 (5-15); BUN/Creatinine Ratio 27.6 (10.0-20.0); Calcium 8.8 mg/dL (8.7-10.4); Carbon Dioxide 24 mmol/L (20-31); Chloride 104 mmol/L (98-107); Potassium 4.4 mmol/L (3.5-5.1); Sodium 138 mmol/L (136-145)
[2024-07-14 07:43] LABS: Bilirubin, Total 0.5 mg/dL (0.2-1.0)
[2024-07-14 07:58] LABS: Alanine Aminotransferase 79 U/L (7-40); Alkaline Phosphatase 172 U/L (46-116); Aspartate Aminotransferase 69 U/L (13-40); Blood Urea Nitrogen 29 mg/dL (9-23); Glucose 106 mg/dL (74-106); Total Protein 5.3 g/dL (5.7-8.2)
[2024-07-14] MEDS: FUROSEMIDE 40 MG/4 ML VIAL IV SCH (10:16)
--- NOTE | 2024-07-14 11:18 | DVHPN2 ---
Consult Progress Note Subjective Patient reports: Feels better Review of Systems: CVS:Normal (denies CP, Palpitations), RESPIRATORY:Abnormal (SOB wosens with exertion) Objective vital signs Vital Sign Date Time Temp Pulse Resp B/P (MAP) Pulse Ox O2 Delivery O2 Flow Rate FiO2 07/14/24 10:16 113/88 07/14/24 10:16 69 07/14/24 09:00 97.7 16 100 97.7 07/13/24 20:00 Nasal Cannula* 4 36 Total Intake and Output 07/13/24 07/13/24 07/14/24 15:00 23:00 07:00 Intake Total 250 ml 500 ml 700 ml Output Total 500 ml Balance -250 ml 500 ml 700 ml medications Current Medications Medications Dose Ordered Sig/Marily Route Start Time Stop Time Status Last Admin Dose Admin Aspirin 81 mg DAILY PO 07/13/24 10:00 07/14/24 10:16 81 MG Clonidine HCl 0.1 mg Q4HP PRN PO 07/13/24 03:45 Metoprolol Tartrate 25 mg BID PO 07/13/24 10:00 07/14/24 10:16 25 MG Sodium Chloride 10 ml Q8HR IV 07/13/24 06:00 07/14/24 06:18 10 ML Acetaminophen 650 mg Q6HP PRN PO 07/13/24 03:45 07/13/24 22:25 650 MG Furosemide 40 mg DAILY IV 07/14/24 10:00 07/14/24 10:16 40 MG Acetaminophen 500 mg Q8HP PRN PO 07/13/24 14:15 Azithromycin 250 ml @ 125 mls/hr Q24H IV 07/14/24 10:00 07/14/24 10:14 125 MLS/HR Examination: LUNGS:Abnormal (Wheezes/diminished. 4 L NC), CVS:Normal (Telemetry reviewed consistent with sinus rhythm at 60 beats per minute with occasional PVC), CVS:Abnormal (Lower extremity edema resolved,), :Normal (Diuresing well overnight) laboratory and microbiology Laboratory Tests 07/14/24 05:56 Test 07/14/24 05:56 Range/Units Serum Glucose 106 74-106 mg/dL Problem List/Assessment/Plan Problem List/Assessment/Plan Assessment * Chest Pain, Positive Troponins - Trending stable. Likely demand ischemia. Continue medical management as patient not a candidate for ischemic workup due to continued amphetamine use and noncompliance. * Hypertensive Urgency - Better controlled, continue metoprolol. Losartan 25 mg daily added. * Acute on Chronic HFrEF - Diuresis with lasix 40 mg IV daily. Monitor strict I&Os * Cardiomyopathy - Initiate and Continue GDMT as tolerated. Follow up echo shows LVEF 10-15%, dilated LV, RV dysfunction. Trivial pericardial effusion. * PAF - Currently sinus rhythm, continue FD lovenox, continue DOAC upon DC. * Methamphetamine abuse - UDS positive for amphetamines. Advised against * HLD - statin * RLE Edema - Follow up RLE US. * Tobacco use - advised against * Noncompliance - Strongly advised compliance. Case Discussed with Dr Cano. Denies chest pain, palpitations. Shortness of breath slightly worsen. RLE ultrasound negative for DVT. Currently on 4 L NC. Continue diuresing. Continue GDMT as tolerated. This medical document was created using an electronic medical record system with voice recognition software and computerized dictation system. Although this document has been carefully reviewed, there might still be some phonetic and typographical errors. Occasional wrong-word or ``sound-alike substitutions may have occurred due to the inherent limitations of voice recognition software. These areas are purely typographical due to imperfections of the software programs and do not reflect any compromise in the patient's medical care. Please read the chart carefully and recognize, using context, where these substitutions have occurred. Thank you for allowing me to participate in the management of this patient. The treatment plan was discussed with and agreed upon by patient/family including requesting consultants and ordering of imaging/procedures. Plan discussed with: Patient Date of Service: Jul 14, 2024 Billing Provider: MANUEL ORTIZ Common Visit Codes: [id number] INP/OBS CARE(HIGH) MANUEL ORTIZ Jul 14, 2024 11:18
[2024-07-14] MEDS: busPIRone HCL 10 MG TAB PO ONE (17:59)
--- NOTE | 2024-07-14 19:28 | DVHPN2 ---
Subjective c/o epigastric discomfort/had diarrhea yesterday- resolved/ Changes from previous H/P or p: No Changes Eyes: No Pain, No Vision change, No Conjunctivae inflammation, No Eyelid inflammation, No Other, No Redness ENT: No Ear pain, No Ear discharge, No Nose pain, No Nose discharge, No Nose congestion, No Mouth pain, No Mouth swelling, No Throat pain, No Throat swelling, No Other Cardiovascular: Chest Pain; No Palpitations, No Orthopnea, No Paroxysmal Noc. Dyspnea, No Edema, No Lt Headedness, No Other Respiratory: No Cough, No Dry, No Shortness of breath, No SOB with excertion, No Wheezing, No Hemoptysis, No Pleuritic Pain, No Sputum, No Other Gastrointestinal: No Nausea, No Vomiting, No Abdominal Pain, No Diarrhea, No Constipation, No Melena, No Hematochezia, No Other Genitourinary: No Dysuria, No Frequency, No Incontinence, No Hematuria, No Retention, No Other Musculoskeletal: No other, No neck pain, No shoulder pain, No arm pain, No back pain, No hand pain, No leg pain, No foot pain Skin: No Rash, No Lesions, No Jaundice, No Bruising, No Other Objective Vitals Vital Signs Date Time Temp Pulse Resp B/P (MAP) Pulse Ox O2 Delivery O2 Flow Rate FiO2 07/14/24 16:30 97.1 58 17 123/81 (95) 90 97.1 07/14/24 08:00 Nasal Cannula* 2 28 Intake/Output Intake and Output 07/14/24 07:00 Intake Total 1450 ml Output Total 500 ml Balance 950 ml Intake Oral 1200 ml IV Total 250 ml Output Urine Total 500 ml # Voids 12 # Bowel Movements 5 General Appearance: Alert, Oriented X3, Cooperative, No acute distress Lungs: Clear to auscultation Cardiovascular: Regular rate, Normal S1, Normal S2 Abdomen: Normal bowel sounds, Soft, No tenderness, No hepatospenomegaly, No masses Neuro: Normal gait, Normal speech, Strength at 5/5 X4 ext, Normal tone, S ensation intact, Cranial nerves 3-12 NL, Reflexes 2+ Psych/Mental Status: Mental status NL, Mood NL Medications Current Medications Medications Dose Ordered Sig/Marily Route Start Time Stop Time Status Last Admin Dose Admin Aspirin 81 mg DAILY PO 07/13/24 10:00 07/14/24 10:16 81 MG Clonidine HCl 0.1 mg Q4HP PRN PO 07/13/24 03:45 Metoprolol Tartrate 25 mg BID PO 07/13/24 10:00 07/14/24 10:16 25 MG Sodium Chloride 10 ml Q8HR IV 07/13/24 06:00 07/14/24 14:00 10 ML Acetaminophen 650 mg Q6HP PRN PO 07/13/24 03:45 07/14/24 15:10 650 MG Furosemide 40 mg DAILY IV 07/14/24 10:00 07/14/24 10:16 40 MG Acetaminophen 500 mg Q8HP PRN PO 07/13/24 14:15 Azithromycin 250 ml @ 125 mls/hr Q24H IV 07/14/24 10:00 07/14/24 10:14 125 MLS/HR Buspirone HCl 5 mg Q12HR PRN PO 07/14/24 17:00 Laboratory Results Laboratory Tests 07/14/24 05:56 Chemistry Test 07/14/24 05:56 Albumin 3.5 g/dL (3.2-4.8) Calcium Level 8.8 mg/dL (8.7-10.4) Total Protein 5.3 g/dL (5.7-8.2) L LFT Test 07/14/24 05:56 Alanine Aminotransferase (ALT) 79 U/L (7-40) H Alkaline Phosphatase 172 U/L (46-116) H Aspartate Amino Transferase (AST) 69 U/L (13-40) H Total Bilirubin 0.5 mg/dL (0.2-1.0) Urinalysis Test 07/13/24 10:24 Urine Color Yellow (Yellow) Urine Clarity Clear (Clear) Urine pH 5.5 (5.0-9.0) Urine Specific [place] 1.043 (1.001-1.035) Urine Protein 1+ (Negative) H Urine Ketones Negative (Negative) Urine Blood 1+ /uL (Negative) H Urine Nitrite Negative (Negative) Urine Bilirubin Negative (Negative) Urine Urobilinogen Normal mg/dL (Negative) Urine Leukocyte Esterase Negative /uL (Negative) Urine RBC 3 /hpf (0 - 4) Urine Microscopic WBC 2 /HPF (0-5) Urine Squamous Epithelial Cells Few /hpf (<5) Urine Bacteria None seen /hpf (None Seen) Urine Hyaline Casts Few /lpf (0 - 2) Urine Glucose Normal mg/dL (Normal) Assessment/Plan Assessment/Plan acute on chronic systolic chf meth indiuced cardiomyopathy elevated trop secondary to above cxr ? pneumonia/on z-alex/monitor//recheck xray in am meth abuse- states uses sporadically only for past 2 months/no signs of withdrawl/sttaes was using daily untill 2 months back//monitor closely Plan discussed with: Patient, Other My Orders Orders - ERIS STOCK MD Procedure Category Date Status Time Buspirone Hcl Tablet PHA 07/14/24 In Process (Buspar Tablet) 17:00 * Screening Nurse CONS 07/14/24 Transmitted Consult Date of Service: Jul 14, 2024 Billing Provider: ERIS STOCK MD Common Visit Codes: [id number] INP/OBS CARE(MOD) ERIS STOCK MD Jul 14, 2024 19:28
[2024-07-14] MEDS: PANTOPRAZOLE 40 MG TAB PO ONE (21:43)
[2024-07-15] VITALS (9 sets, daily range): BP systolic 111–135; BP diastolic 88–94; PULSE 56–133; RESP 16–18; TEMP 97.4–98.2; O2SAT 93–100
[2024-07-15] MEDS: ACETAMINOPHEN 500 MG TAB or CAP PO PRN (02:53)
[2024-07-15] MEDS: busPIRone HCL 10 MG TAB PO PRN (05:15)
[2024-07-15] MEDS: PANTOPRAZOLE 40 MG TAB PO SCH (05:15)
[2024-07-15 10:56] LABS: Hepatitis B Surface Antigen Negative (Negative)
--- NOTE | 2024-07-15 11:22 | ECG ---
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
--- NOTE | 2024-07-15 11:24 | DVH ---
XY CHEST TWO VIEWS ROUTINE CLINICAL HISTORY: f/u on chf COMPARISON: None TECHNIQUE: Frontal and lateral view of the chest was obtained FINDINGS: Lines and Tubes: None Lungs: No focal consolidation. Pleura: Small left pleural effusion. Cardiomediastinal contours: Cardiomegaly Bones: No acute osseous abnormality. IMPRESSION: Small left pleural effusion. Improving pulmonary edema.
[2024-07-15 11:42] LABS: Hepatitis C Antibody Negative (Negative)
--- NOTE | 2024-07-15 17:28 | DVHPN2 ---
Subjective In bed resting Changes from previous H/P or p: No Changes Eyes: No Pain, No Vision change, No Conjunctivae inflammation, No Eyelid inflammation, No Other, No Redness ENT: No Ear pain, No Ear discharge, No Nose pain, No Nose discharge, No Nose congestion, No Mouth pain, No Mouth swelling, No Throat pain, No Throat swelling, No Other Cardiovascular: Chest Pain; No Palpitations, No Orthopnea, No Paroxysmal Noc. Dyspnea, No Edema, No Lt Headedness, No Other Respiratory: No Cough, No Dry, No Shortness of breath, No SOB with excertion, No Wheezing, No Hemoptysis, No Pleuritic Pain, No Sputum, No Other Gastrointestinal: No Nausea, No Vomiting, No Abdominal Pain, No Diarrhea, No Constipation, No Melena, No Hematochezia, No Other Genitourinary: No Dysuria, No Frequency, No Incontinence, No Hematuria, No Retention, No Other Musculoskeletal: No other, No neck pain, No shoulder pain, No arm pain, No back pain, No hand pain, No leg pain, No foot pain Skin: No Rash, No Lesions, No Jaundice, No Bruising, No Other Objective Vitals Vital Signs Date Time Temp Pulse Resp B/P (MAP) Pulse Ox O2 Delivery O2 Flow Rate FiO2 07/15/24 16:30 97.6 59 16 126/94 (105) 100 97.6 07/15/24 08:00 Room Air* 0 21 Intake/Output Intake and Output 07/15/24 07:00 Intake Total 240 ml Balance 240 ml Intake Oral 240 ml # Voids 9 # Bowel Movements 2 General Appearance: Alert, Oriented X3, Cooperative, No acute distress Lungs: Clear to auscultation Cardiovascular: Regular rate, Normal S1, Normal S2 Abdomen: Normal bowel sounds, Soft, No tenderness, No hepatospenomegaly, No masses Neuro: Normal gait, Normal speech, Strength at 5/5 X4 ext, Normal tone, S ensation intact, Cranial nerves 3-12 NL, Reflexes 2+ Psych/Mental Status: Mental status NL, Mood NL Medications Current Medications Medications Dose Ordered Sig/Marily Route Start Time Stop Time Status Last Admin Dose Admin Aspirin 81 mg DAILY PO 07/13/24 10:00 07/15/24 10:06 81 MG Clonidine HCl 0.1 mg Q4HP PRN PO 07/13/24 03:45 Metoprolol Tartrate 25 mg BID PO 07/13/24 10:00 07/15/24 10:06 25 MG Sodium Chloride 10 ml Q8HR IV 07/13/24 06:00 07/15/24 14:02 10 ML Acetaminophen 650 mg Q6HP PRN PO 07/13/24 03:45 07/14/24 21:40 650 MG Furosemide 40 mg DAILY IV 07/14/24 10:00 07/15/24 10:06 40 MG Acetaminophen 500 mg Q8HP PRN PO 07/13/24 14:15 07/15/24 02:53 500 MG Azithromycin 250 ml @ 125 mls/hr Q24H IV 07/14/24 10:00 07/15/24 10:07 125 MLS/HR Buspirone HCl 5 mg Q12HR PRN PO 07/14/24 17:00 07/15/24 05:15 5 MG Pantoprazole Sodium 40 mg DAILY@0600 PO 07/15/24 06:00 07/15/24 05:15 40 MG Laboratory Results Laboratory Tests 07/14/24 05:56 Urinalysis Test 07/13/24 10:24 Urine Color Yellow (Yellow) Urine Clarity Clear (Clear) Urine pH 5.5 (5.0-9.0) Urine Specific [place] 1.043 (1.001-1.035) Urine Protein 1+ (Negative) H Urine Ketones Negative (Negative) Urine Blood 1+ /uL (Negative) H Urine Nitrite Negative (Negative) Urine Bilirubin Negative (Negative) Urine Urobilinogen Normal mg/dL (Negative) Urine Leukocyte Esterase Negative /uL (Negative) Urine RBC 3 /hpf (0 - 4) Urine Microscopic WBC 2 /HPF (0-5) Urine Squamous Epithelial Cells Few /hpf (<5) Urine Bacteria None seen /hpf (None Seen) Urine Hyaline Casts Few /lpf (0 - 2) Urine Glucose Normal mg/dL (Normal) Assessment/Plan Assessment/Plan acute on chronic systolic chf meth indiuced cardiomyopathy elevated trop secondary to above cxr ? pneumonia/on z-alex/monitor//recheck xray in am meth abuse- states uses sporadically only for past 2 months/no signs of withdrawl/sttaes was using daily untill 2 months back//monitor closely Continue IV zithromax IV lasix daily Follow up echo shows LVEF 10-15%, dilated LV, RV dysfunction. Trivial pericardial effusion. Plan discussed with: Patient Date of Service: Jul 15, 2024 Billing Provider: HASMUKH CONDON MD Common Visit Codes: [id number] INP/OBS CARE(HIGH) HASMUKH CODNON MD Jul 15, 2024 17:28
[2024-07-16] VITALS (8 sets, daily range): BP systolic 125–144; BP diastolic 86–100; PULSE 53–70; RESP 16–18; TEMP 97.1–97.9; O2SAT 90–100
--- NOTE | 2024-07-16 17:52 | DVHPN2 ---
Subjective Seen and examined at bedside, will get ABG to see if patient qualify for home oxygen. Changes from previous H/P or p: No Changes Eyes: No Pain, No Vision change, No Conjunctivae inflammation, No Eyelid inflammation, No Other, No Redness ENT: No Ear pain, No Ear discharge, No Nose pain, No Nose discharge, No Nose congestion, No Mouth pain, No Mouth swelling, No Throat pain, No Throat swelling, No Other Cardiovascular: No Chest Pain, No Palpitations, No Orthopnea, No Paroxysmal Noc. Dyspnea, No Edema, No Lt Headedness, No Other Respiratory: No Cough, No Dry, No Shortness of breath, No SOB with excertion, No Wheezing, No Hemoptysis, No Pleuritic Pain, No Sputum, No Other Gastrointestinal: No Nausea, No Vomiting, No Abdominal Pain, No Diarrhea, No Constipation, No Melena, No Hematochezia, No Other Genitourinary: No Dysuria, No Frequency, No Incontinence, No Hematuria, No Retention, No Other Musculoskeletal: No other, No neck pain, No shoulder pain, No arm pain, No back pain, No hand pain, No leg pain, No foot pain Skin: No Rash, No Lesions, No Jaundice, No Bruising, No Other Objective Vitals Vital Signs Date Time Temp Pulse Resp B/P (MAP) Pulse Ox O2 Delivery O2 Flow Rate FiO2 07/16/24 16:58 97.6 57 16 139/94 (109) 93 97.6 07/16/24 08:00 Nasal Cannula* 2 28 Intake/Output Intake and Output 07/16/24 07:00 Intake Total 975 ml Balance 975 ml Intake Oral 725 ml IV Total 250 ml # Voids 11 General Appearance: Alert, Oriented X3, Cooperative, No acute distress Lungs: Clear to auscultation Cardiovascular: Regular rate, Normal S1, Normal S2 Abdomen: Normal bowel sounds, Soft, No tenderness, No hepatospenomegaly, No masses Neuro: Normal gait, Normal speech, Strength at 5/5 X4 ext, Normal tone, S ensation intact, Cranial nerves 3-12 NL, Reflexes 2+ Psych/Mental Status: Mental status NL, Mood NL Medications Current Medications Medications Dose Ordered Sig/Marily Route Start Time Stop Time Status Last Admin Dose Admin Aspirin 81 mg DAILY PO 07/13/24 10:00 07/16/24 09:09 81 MG Clonidine HCl 0.1 mg Q4HP PRN PO 07/13/24 03:45 Metoprolol Tartrate 25 mg BID PO 07/13/24 10:00 07/16/24 09:09 25 MG Sodium Chloride 10 ml Q8HR IV 07/13/24 06:00 07/16/24 14:00 10 ML Acetaminophen 650 mg Q6HP PRN PO 07/13/24 03:45 07/15/24 23:01 650 MG Furosemide 40 mg DAILY IV 07/14/24 10:00 07/16/24 09:10 40 MG Acetaminophen 500 mg Q8HP PRN PO 07/13/24 14:15 07/15/24 02:53 500 MG Buspirone HCl 5 mg Q12HR PRN PO 07/14/24 17:00 07/15/24 20:09 5 MG Pantoprazole Sodium 40 mg DAILY@0600 PO 07/15/24 06:00 07/15/24 05:15 40 MG Azithromycin 250 mg DAILY PO 07/17/24 10:00 UNV Laboratory Results Laboratory Tests 07/14/24 05:56 Urinalysis Test 07/13/24 10:24 Urine Color Yellow (Yellow) Urine Clarity Clear (Clear) Urine pH 5.5 (5.0-9.0) Urine Specific [place] 1.043 (1.001-1.035) Urine Protein 1+ (Negative) H Urine Ketones Negative (Negative) Urine Blood 1+ /uL (Negative) H Urine Nitrite Negative (Negative) Urine Bilirubin Negative (Negative) Urine Urobilinogen Normal mg/dL (Negative) Urine Leukocyte Esterase Negative /uL (Negative) Urine RBC 3 /hpf (0 - 4) Urine Microscopic WBC 2 /HPF (0-5) Urine Squamous Epithelial Cells Few /hpf (<5) Urine Bacteria None seen /hpf (None Seen) Urine Hyaline Casts Few /lpf (0 - 2) Urine Glucose Normal mg/dL (Normal) Assessment/Plan Assessment/Plan # Acute Resp Failure - Titrate Oxygen # NSTEMI # Acute Systolic CHF - EF 10-15% - Lasix # Substance Abuse Counseling- Meth abuse # Left Pleural Effusion - Radiology Eval Plan discussed with: Patient My Orders Orders - CATY SCRUGGS MD Procedure Category Date Status Time Azithromycin Tablet PHA 07/17/24 Logged (Zithromax Tablet) 10:00 Abg W/ Co-Ox RT 07/16/24 Logged 15:54 Prothrombin Time W/ LAB 07/17/24 Verified INR 04:00 Partial LAB 07/17/24 Verified Thromboplastin Time 04:00 Magnesium LAB 07/17/24 Verified 04:00 Comprehensive LAB 07/17/24 Verified Metabolic Panel 04:00 * Radiologist Consult CONS 07/16/24 Transmitted 17:44 Chest Portable XY 07/17/24 Logged 04:00 Date of Service: Jul 16, 2024 Billing Provider: CATY SCRUGGS MD Common Visit Codes: [id number] INP/OBS CARE(HIGH) CATY SCRUGGS MD Jul 16, 2024 17:52
[2024-07-17] VITALS (7 sets, daily range): BP systolic 124–153; BP diastolic 96–103; PULSE 62–67; RESP 16–20; TEMP 97.4–98; O2SAT 91–98
--- NOTE | 2024-07-17 05:22 | DVH ---
CHEST RADIOGRAPH Indication: pulm edema Technique: Single frontal view of the chest was obtained COMPARISON: XY CHEST PORTABLE on DOS: 07/13/24 FINDINGS: Lines and Tubes: None Lungs: Diffuse increased interstitial prominence. Pleura: Small bilateral pleural effusions. No pneumothorax. Cardiomediastinal contours: Unremarkable Bones: Unremarkable IMPRESSION: Mild pulmonary vascular congestion and small bilateral pleural effusions.
[2024-07-17 07:07] LABS: INR 1.11 (0.9-1.15); Partial Thromboplastin Time 21.1 SEC (24.5-34.5); Prothrombin Time 11.6 sec (9.3-11.8)
[2024-07-17 07:20] LABS: Anion Gap 11 (5-15); BUN/Creatinine Ratio 29.6 (10.0-20.0); Calcium 9.1 mg/dL (8.7-10.4); Carbon Dioxide 25 mmol/L (20-31); Chloride 100 mmol/L (98-107); Potassium 4.4 mmol/L (3.5-5.1)
[2024-07-17 07:21] LABS: Albumin 3.6 g/dL (3.2-4.8)
[2024-07-17 07:22] LABS: Bilirubin, Total 0.4 mg/dL (0.2-1.0)
[2024-07-17 07:27] LABS: Alanine Aminotransferase 117 U/L (7-40); Alkaline Phosphatase 220 U/L (46-116); Aspartate Aminotransferase 80 U/L (13-40); Blood Urea Nitrogen 34 mg/dL (9-23); Glucose 146 mg/dL (74-106); Sodium 136 mmol/L (136-145); Total Protein 5.5 g/dL (5.7-8.2)
--- NOTE | 2024-07-17 08:12 | DVH ---
Bilateral Chest Sonogram Date: 07/17/2024 06:51 AM Clinical history: FLUID CHECK FOR POSSIBLE THORACENTESIS Findings: Limited sonographic evaluation of the right and left chest was performed to localize and renata fluid f or thoracentesis. Moderate left pleural effusion. Small right pleural effusion. IMPRESSION: Moderate left pleural effusion. Small right pleural effusion. END IMPRESSION:
[2024-07-17] MEDS: AZITHROMYCIN 250 MG TAB PO SCH (08:19)
--- NOTE | 2024-07-17 13:10 | DVH ---
CHEST RADIOGRAPH Indication: POST THORACENTESIS Technique: Single frontal view of the chest was obtained Comparison: XY CHEST PORTABLE on DOS: 07/17/24, XY CHEST PORTABLE on DOS: 07/13/24 FINDINGS: Lines and Tubes: None Lungs: No focal consolidation. 8 mm calcified granuloma left lower lobe. Pleura: Small right pleural effusion. No pneumothorax. Cardiomediastinal contours: Cardiomegaly. Bones: No acute osseous abnormality. IMPRESSION: Cardiomegaly with mild CHF.
--- NOTE | 2024-07-17 13:37 | DVH ---
US THORACENTESIS, HISTORY: LT PLEURAL EFFUSION PROCEDURE: Informed consent was obtained. The patient was seated on the bed. A limited localization u ltrasound of the right/left thorax was obtained, and the optimal approach was marked on the skin. The area was prepped with chlorhexidine which was allowed to dry and draped in the usual sterile fashion . Time out was performed. The skin and the soft tissues were infiltrated with 1% lidocaine. A 5.5 Lexa nch centesis needle catheter was advanced into left pleural space. Following aspiration of fluid, the catheter was advanced and the needle removed. About 600 cc of fluid was drained. Specimen/s was/were sent for appropriate cultures/cytology/cultures and cytology. No immediate complication was identifi ed. FINDINGS: Small to moderate left pleural effusion. Aspirated fluid is clear and serous. IMPRESSION: Left thoracentesis with 600 mL removed.
[2024-07-17 14:42] LABS: Body Fluid Polymorphonuclear 3 % (0-25); Body Fluid Red Blood Cells 5429 CUMM (0-2000); Body Fluid White Blood Cells 891 CUMM (0-200)
--- NOTE | 2024-07-17 18:44 | DVHPN2 ---
Subjective In bed resting Changes from previous H/P or p: No Changes Eyes: No Pain, No Vision change, No Conjunctivae inflammation, No Eyelid inflammation, No Other, No Redness ENT: No Ear pain, No Ear discharge, No Nose pain, No Nose discharge, No Nose congestion, No Mouth pain, No Mouth swelling, No Throat pain, No Throat swelling, No Other Cardiovascular: No Chest Pain, No Palpitations, No Orthopnea, No Paroxysmal Noc. Dyspnea, No Edema, No Lt Headedness, No Other Respiratory: No Cough, No Dry, No Shortness of breath, No SOB with excertion, No Wheezing, No Hemoptysis, No Pleuritic Pain, No Sputum, No Other Gastrointestinal: No Nausea, No Vomiting, No Abdominal Pain, No Diarrhea, No Constipation, No Melena, No Hematochezia, No Other Genitourinary: No Dysuria, No Frequency, No Incontinence, No Hematuria, No Retention, No Other Musculoskeletal: No other, No neck pain, No shoulder pain, No arm pain, No back pain, No hand pain, No leg pain, No foot pain Skin: No Rash, No Lesions, No Jaundice, No Bruising, No Other Objective Vitals Vital Signs Date Time Temp Pulse Resp B/P (MAP) Pulse Ox O2 Delivery O2 Flow Rate FiO2 07/17/24 18:30 147/100 (116) 07/17/24 10:16 68 07/17/24 09:00 97.4 16 91 97.4 07/17/24 08:00 Room Air* 0 21 Intake/Output Intake and Output 07/17/24 07:00 Intake Total 2075 ml Balance 2075 ml Intake Oral 2075 ml # Voids 9 # Bowel Movements 3 General Appearance: Alert, Oriented X3, Cooperative, No acute distress Lungs: Clear to auscultation Cardiovascular: Regular rate, Normal S1, Normal S2 Abdomen: Normal bowel sounds, Soft, No tenderness, No hepatospenomegaly, No masses Neuro: Normal gait, Normal speech, Strength at 5/5 X4 ext, Normal tone, S ensation intact, Cranial nerves 3-12 NL, Reflexes 2+ Psych/Mental Status: Mental status NL, Mood NL Medications Current Medications Medications Dose Ordered Sig/Marily Route Start Time Stop Time Status Last Admin Dose Admin Aspirin 81 mg DAILY PO 07/13/24 10:00 07/17/24 08:18 81 MG Clonidine HCl 0.1 mg Q4HP PRN PO 07/13/24 03:45 Metoprolol Tartrate 25 mg BID PO 07/13/24 10:00 07/17/24 08:19 25 MG Sodium Chloride 10 ml Q8HR IV 07/13/24 06:00 07/17/24 08:19 10 ML Furosemide 40 mg DAILY IV 07/14/24 10:00 07/17/24 08:18 40 MG Acetaminophen 500 mg Q8HP PRN PO 07/13/24 14:15 07/15/24 02:53 500 MG Buspirone HCl 5 mg Q12HR PRN PO 07/14/24 17:00 07/16/24 21:31 5 MG Pantoprazole Sodium 40 mg DAILY@0600 PO 07/15/24 06:00 07/15/24 05:15 40 MG Azithromycin 250 mg DAILY PO 07/17/24 10:00 07/17/24 08:19 250 MG Laboratory Results Laboratory Tests 07/14/24 05:56 07/17/24 06:11 Chemistry Test 07/17/24 06:11 Albumin 3.6 g/dL (3.2-4.8) Calcium Level 9.1 mg/dL (8.7-10.4) Magnesium Level 2.0 mg/dL (1.6-2.6) Total Protein 5.5 g/dL (5.7-8.2) L Coagulation Test 07/17/24 06:11 Prothrombin Time 11.6 sec (9.3-11.8) Prothrombin Time INR 1.11 (0.9-1.15) Activated Partial Thromboplast Time 21.1 SEC (24.5-34.5) L LFT Test 07/17/24 06:11 Alanine Aminotransferase (ALT) 117 U/L (7-40) H Alkaline Phosphatase 220 U/L (46-116) H Aspartate Amino Transferase (AST) 80 U/L (13-40) H Total Bilirubin 0.4 mg/dL (0.2-1.0) Urinalysis Test 07/13/24 10:24 Urine Color Yellow (Yellow) Urine Clarity Clear (Clear) Urine pH 5.5 (5.0-9.0) Urine Specific [place] 1.043 (1.001-1.035) Urine Protein 1+ (Negative) H Urine Ketones Negative (Negative) Urine Blood 1+ /uL (Negative) H Urine Nitrite Negative (Negative) Urine Bilirubin Negative (Negative) Urine Urobilinogen Normal mg/dL (Negative) Urine Leukocyte Esterase Negative /uL (Negative) Urine RBC 3 /hpf (0 - 4) Urine Microscopic WBC 2 /HPF (0-5) Urine Squamous Epithelial Cells Few /hpf (<5) Urine Bacteria None seen /hpf (None Seen) Urine Hyaline Casts Few /lpf (0 - 2) Urine Glucose Normal mg/dL (Normal) Microbiology Microbiology Date/Time Source Procedure Growth Status 07/17/24 12:15 Pleural Fluid Received Assessment/Plan Assessment/Plan acute on chronic systolic HF exacerbation Follow up echo shows LVEF 10-15%, dilated LV, RV dysfunction. Trivial pericardial effusion.continue IV lasix daily meth indiuced cardiomyopathy elevated trop secondary to above cxr ? pneumonia/on z-alex/monitor//recheck xray in am meth abuse- states uses sporadically only for past 2 months/no signs of withdrawl/sttaes was using daily untill 2 months back//monitor closely Left Pleural Effusion going for thoracocentesis Plan discussed with: Patient My Orders Orders - HASMUKH CONDON MD Procedure Category Date Status Time Thoracentesis US 07/17/24 Resulted 11:39 Date of Service: Jul 17, 2024 Billing Provider: HASMUKH CONDON MD Common Visit Codes: [id number] INP/OBS CARE(HIGH) HASMUKH CONDON MD Jul 17, 2024 18:44
[2024-07-17] MEDS: MELATONIN 5 MG TAB PO PRN (21:52)
[2024-07-18 04:42] VITALS: BP 130/91; PULSE 56; RESP 20; TEMP 97.4; O2SAT 95
[2024-07-18 06:24] LABS: Anion Gap 10 (5-15); BUN/Creatinine Ratio 33.3 (10.0-20.0); Calcium 9.7 mg/dL (8.7-10.4); Carbon Dioxide 27 mmol/L (20-31); Chloride 100 mmol/L (98-107); Potassium 4.6 mmol/L (3.5-5.1); Sodium 137 mmol/L (136-145)
[2024-07-18 06:26] LABS: Albumin 3.6 g/dL (3.2-4.8); Bilirubin, Total 0.5 mg/dL (0.2-1.0)
[2024-07-18 06:34] LABS: Alanine Aminotransferase 162 U/L (7-40); Alkaline Phosphatase 204 U/L (46-116); Aspartate Aminotransferase 141 U/L (13-40); Blood Urea Nitrogen 33 mg/dL (9-23); Glucose 116 mg/dL (74-106); Total Protein 5.6 g/dL (5.7-8.2)
[2024-07-18 08:00] VITALS: PULSE 61; PULSE 63; RESP 16; O2SAT 98
[2024-07-18 08:26] VITALS: BP 148/103; PULSE 61; RESP 18; TEMP 96.1; O2SAT 98
--- NOTE | 2024-07-18 10:30 | CONS ---
Pharmacy Clinical Information: CQM HF (missing EBBB, ACEI/ARB/ARNI, MRA, SGLT2). Per cardiology note, will start patient on metoprolol succinate (might be stabilizing HR with metoprolol tartrate first; patient's HR is currently low) and will start losartan 25mg PO daily. At this time, patient's BUN:SCr ratio is slightly trending up; should be noted if starting SGLT2 and MRA at the discretion of the cardiology team. BERNARDO EDUARDO PHARMACIST Jul 18, 2024 10:30
[2024-07-18 12:07] LABS: Protein, Body Fluid 1.2 g/dL (.)
[2024-07-18] MEDS ORDERED: CARVEDILOL 3.125 MG TAB PO STA (12:27)
[2024-07-18] MEDS ORDERED: ASPI-543 PO (12:29)
[2024-07-18] MEDS ORDERED: MET25T PO (12:29)
[2024-07-18] MEDS ORDERED: NIFE1TAB31 PO (12:29)
[2024-07-18] MEDS ORDERED: FURO1TAB31 PO (12:30)
[2024-07-18 12:50] VITALS: BP 134/108; PULSE 55; RESP 16; TEMP 97.3; O2SAT 98
[2024-07-18 13:02] VITALS: BP 134/108; PULSE 55; RESP 16; TEMP 97.3; O2SAT 98
--- NOTE | 2024-07-18 17:42 | DVHDS2 ---
Discharge Summary Date of Admission Jul 13, 2024 at 04:29 Date of Discharge: Jul 18, 2024 Labs/Diagnostic Data: Laboratory Results Test 07/18/24 04:23 07/17/24 12:15 07/17/24 06:11 07/14/24 05:56 Sodium Level 137 mmol/L (136-145) Potassium Level 4.6 mmol/L (3.5-5.1) Chloride Level 100 mmol/L (98-107) Carbon Dioxide Level 27 mmol/L (20-31) Anion Gap 10 (5-15) Blood Urea Nitrogen 33 mg/dL (9-23) Creatinine 0.99 mg/dL (0.550-1.02) Glomerular Filtration Rate Calc 67 mL/min (>90) BUN/Creatinine Ratio 33.3 (10.0-20.0) Serum Glucose 116 mg/dL (74-106) Calcium Level 9.7 mg/dL (8.7-10.4) Total Bilirubin 0.5 mg/dL (0.2-1.0) Aspartate Amino Transferase (AST) 141 U/L (13-40) Alanine Aminotransferase (ALT) 162 U/L (7-40) Alkaline Phosphatase 204 U/L (46-116) Total Protein 5.6 g/dL (5.7-8.2) Albumin 3.6 g/dL (3.2-4.8) Body Fluid Source Pleural fluid Body Fluid pH 8.0 Body Fluid WBC (Manual) 891 CUMM (0-200) Body Fluid RBC (Manual) 5429 CUMM (0-2000) Body Fluid Mononuclear Cells 97 % Body Fluid Polymorphonuclear Cells 3 % (0-25) Body Fluid Glucose 116 mg/dL (.) Body Fluid Total Protein 1.2 g/dL (.) Body Fluid Lactate Dehydrogenase 91 IU/L (.) Prothrombin Time 11.6 sec (9.3-11.8) Prothrombin Time INR 1.11 (0.9-1.15) Activated Partial Thromboplast Time 21.1 SEC (24.5-34.5) Magnesium Level 2.0 mg/dL (1.6-2.6) White Blood Count 7.9 10^3/uL (4.4-10.8) Red Blood Count 4.77 10^6/uL (4.0-5.20) Hemoglobin 13.9 g/dL (12.2-16.2) Hematocrit 43.2 % (36.0-46.0) Mean Corpuscular Volume 90.6 fL (80.0-100.0) Mean Corpuscular Hemoglobin 29.1 pg (28.0-32.0) Mean Corpuscular Hemoglobin Concent 32.2 g/dL (32.0-36.0) Red Cell Distribution Width 13.8 % (11.8-14.3) Platelet Count 183 10^3/uL (140-450) Mean Platelet Volume 9.0 fL (6.9-10.8) Neutrophils (%) (Auto) 76.5 % (37.0-80.0) Lymphocytes (%) (Auto) 13.7 % (10.0-50.0) Monocytes (%) (Auto) 8.4 % (0.0-12.0) Eosinophils (%) (Auto) 0.8 % (0.0-7.0) Basophils (%) (Auto) 0.6 % (0.0-2.0) Neutrophils # (Auto) 6.0 10 ^3/uL (1.6-8.6) Lymphocytes # (Auto) 1.1 10 ^3/uL (0.4-5.4) Monocytes # (Auto) 0.7 10 ^3/uL (0-1.3) Eosinophils # (Auto) 0.1 10 ^3/uL (0-0.8) Basophils # (Auto) 0 10 ^3/uL (0-0.2) Nucleated Red Blood Cells 0.1 % Test 07/13/24 16:25 07/13/24 10:24 07/13/24 10:18 07/13/24 06:28 Hepatitis B Surface Antigen Negative (Negative) Hepatitis C Antibody Negative (Negative) Urine Color Yellow (Yellow) Urine Clarity Clear (Clear) Urine pH 5.5 (5.0-9.0) Urine Specific [place] 1.043 (1.001-1.035) Urine Protein 1+ (Negative) Urine Ketones Negative (Negative) Urine Blood 1+ /uL (Negative) Urine Nitrite Negative (Negative) Urine Bilirubin Negative (Negative) Urine Urobilinogen Normal mg/dL (Negative) Urine Leukocyte Esterase Negative /uL (Negative) Urine RBC 3 /hpf (0 - 4) Urine Microscopic WBC 2 /HPF (0-5) Urine Squamous Epithelial Cells Few /hpf (<5) Urine Bacteria None seen /hpf (None Seen) Urine Hyaline Casts Few /lpf (0 - 2) Urine Glucose Normal mg/dL (Normal) Urine Opiates Screen Neg (NEGATIVE) Urine Fentanyl Screen Neg (NEGATIVE) Urine Barbiturates Screen Neg (NEGATIVE) Urine Phencyclidine Screen Neg (NEGATIVE) Urine Amphetamines Screen Pos (NEGATIVE) Urine Benzodiazepines Screen Neg (NEGATIVE) Urine Cocaine Screen Neg (NEGATIVE) Urine Cannabinoids Screen Neg (NEGATIVE) B-Type Natriuretic Peptide 2279.83 pg/mL (0-100) Test 07/13/24 05:23 07/13/24 05:09 Troponin I High Sensitivity 272 ng/L (</=34) Triglycerides Level 108 mg/dL (< 150) Cholesterol Level 192 mg/dL (< 200) LDL Cholesterol 155 mg/dL (< 100) HDL Cholesterol 35 mg/dL (40-59) Other Laboratory Tests 07/18/24 04:23 07/14/24 05:56 Brief Hx & Hospital Course: The patient is a 58-year-old female with past medical history of hypertension who presented to [facility] ED with complaint of chest pain. Patient reports he has been experiencing intermittent episode of chest pain for the past 3 days, associated shortness of breaths, getting worse today that prompted this visit. Patient was seen and evaluated in the ED, laboratory data shows WBC 8.3, platelets 231, sodium 140, potassium 4.0, BUN 24, creatinine 1.02, GFR 65, glucose 128, troponin 314, blood pressure 165/121, heart rate 94, temperature 98.2 F, O2 saturation 97% on room air. Chest x-ray revealing bilateral lung base opacity may be due to pneumonia and/or pleural effusions, cardiomegaly present. Patient was given aspirin 325 mg p.o. x1, please see medication orders section in the computer. On my assessment, patient denied chest pain at this moment, no headache, no dizziness, no diaphoresis, no nausea, no vomiting, no fever, no chills. Patient was admitted for further evaluation and medical management. Admitted with acute systolic HF with EF 10-15 She got diuresed with IV lasix and tolerated well. Had left pleural effusion and had thoracocentesis Condition at Discharge: Good Final Diagnosis/Problems List Acute on chronic systolic heart failure exacerbation Acute pneumonia ruled out Hypertensive urgency resolved NSTEMI ruled out Left pleural effusion resolved Discharge Disposition: Home Discharge Instruct/Medications Diet: Regular Activity: No Restrictions, As Tolerated Follow Up/Referral: follow up with PCP in 7 days Medications: Lasix, metoprolol, nifedipine, aspirin Discharge Statement: "Patient was advised to return to the ER or call 911 if any headaches, dizziness, shortness of breath, chest pain, abdominal pain, bleeding, fevers, or worsening of medical condition. Patient was counseled about treatment plan, medications, possible side effects, patientverbalized understanding. All questions were answered to the best of my ability. This discharge took greater then 30 minutes in planning, reviewing documentation, counseling the patient, and discussing with other team members." ASSESSMENT ASSESSMENT Assessment HTN, ACHF, Pleural Effusion Date of Service: Jul 18, 2024 Billing Provider: HASMUKH CONDON MD Common Visit Codes: [id number] DISCH DAY >30min HASMUKH CONDON MD Jul 18, 2024 17:42
== END 2024-07-18 15:00 | disposition home or self-care (01) | DRG 133 ==
LOC: EDBD 02:10 → ER 02:10 → TELE-WESTW 04:29 → OVERFLOW 04:29 → TELE-WESTW 15:16 → WEST WING 07-16 14:42 → TELE-WESTW 07-17 23:09
PROVIDERS: ADMIT Hospitalist; ATTEND Hospitalist
PROC: 0W9B3ZZ Drainage of Left Pleural Cavity, Percutaneous Approach (ICD-10-PCS; principal; 2024-07-17)
DX: J96.00 Acute respiratory failure, unspecified whether with hypoxia or hypercapnia (principal); I50.23 Acute on chronic systolic (congestive) heart failure; I42.7 Cardiomyopathy due to drug and external agent; J91.8 Pleural effusion in other conditions classified elsewhere; I16.0 Hypertensive urgency; I11.0 Hypertensive heart disease with heart failure; I48.0 Paroxysmal atrial fibrillation; F15.10 Other stimulant abuse, uncomplicated; E78.5 Hyperlipidemia, unspecified; T43.655A Adverse effect of methamphetamines, initial encounter; Z87.891 Personal history of nicotine dependence; Z79.1 Long term (current) use of non-steroidal anti-inflammatories (NSAID); Z79.891 Long term (current) use of opiate analgesic; Z79.82 Long term (current) use of aspirin; Z86.73 Personal history of transient ischemic attack (TIA), and cerebral infarction without residual deficits; Z91.199 Patient's noncompliance with other medical treatment and regimen due to unspecified reason; Z79.899 Other long term (current) drug therapy; Y92.89 Other specified places as the place of occurrence of the external cause
CPT/HCPCS: 32555; 36415; 36600; 71045; 71046; 76604; 76942; 80048; 80053; 80061; 80307; 81001; 82805; 83735; 83880; 83986; 84484; 85025; 85610; 85730; 86803; 87205; 87340; 89051; 93005; 93306; 93971; 99291; G0378; J2405